=== PATIENT | male | born 1950 | race Caucasian/White ===

== ENCOUNTER 2016-09-03 17:31 | Inpatient (IN) ==
--- NOTE | 2016-09-03 13:04 | Emergency Department Note ---
General Adult HPI - General Chief complaint: Blood Pressure Problem Stated complaint: Increased blood pressure Time Seen by Provider: 09/03/16 12:56 Source: patient Mode of arrival: ambulatory Limitations: no limitations - History of Present Illness HPI Narrative: 66-year-old male had some right upper quadrant pain midepigastric pain yesterday. He was [employer] today. He did not drink any alcohol. He states his pain is for the most part subsided. There's been no nausea, no vomiting. No hematemesis, no melena or patient is afebrile and denies any symptoms of urgency, frequency or dysuria - Related Data Home Medications Medication Instructions Recorded Confirmed Aspirin [Lo-Dose Aspirin EC] 81 mg PO DAILY 09/03/16 09/03/16 Atorvastatin [Lipitor] 20 mg PO HS 09/03/16 09/03/16 Hydrochlorothiazide [Oretic] 25 mg PO DAILY 09/03/16 09/03/16 Levothyroxine 0.2 mg PO DAILY 09/03/16 09/03/16 Methocarbamol [Robaxin] 750 mg PO DAILYP PRN 09/03/16 09/03/16 Metoprolol Tartrate [Lopressor] 50 mg PO DAILY 09/03/16 09/03/16 Tamsulosin [Flomax] 0.4 mg PO DAILY 09/03/16 09/03/16 buPROPion [Wellbutrin Xl] 300 mg PO DAILY 09/03/16 09/03/16 Allergies Allergy/AdvReac Type Severity Reaction Status Date / Time Amoxicillin Allergy Intermediate Hives Verified 09/03/16 11:04 Review of Systems All systems ED: reviewed and negative except as stated. Constitutional: Denies: fever, chills Eyes: Denies: eye pain ENT ED: Denies: ear pain Cardiovascular: Denies: chest pain Respiratory: Denies: cough Gastrointestinal: Reports: abdominal pain. Denies: nausea, vomiting, diarrhea, constipation, hematemesis, melena Genitourinary: Denies: urgency, dysuria Musculoskeletal: Denies: back pain Integumentary: Denies: rash Neurological: Denies: headache Psychiatric: Denies: anxiety Endocrine: Denies: as per HPI Past Medical History - Past Medical History Medical history: Reports: other ([place]) Surgical history ED: Reports: non-contributory Family history: Reports: non-contributory - Social History smoking status: Never smoker Alcohol use: Reports: Rarely Drug use: Reports: none Physical Exam - General Limitations: no limitations General appearance: alert - Head Head exam: atraumatic - Eye Eye exam: Present: normal appearance - ENT ENT exam: normal exam, normal oropharynx - Neck Neck exam: Present: normal inspection, full ROM - Chest Chest inspection: Present: normal inspection - Respiratory Respiratory exam: Present: normal lung sounds bilaterally, respiratory distress - Cardiovascular Cardiovascular exam: Present: regular rate, normal rhythm - Abdominal Exam Abdominal exam: Present: soft, distention - exam: Present: normal inspection, testicular tenderness - Extremities Exam Extremities exam: Present: normal inspection, full ROM - Back Exam Back exam: Present: normal inspection, full ROM, CVA tenderness (R). Absent: tenderness Course Vital Signs Temperature 97.0 F L 09/03/16 11:01 Pulse Rate 78 09/03/16 11:01 Respiratory Rate 18 09/03/16 11:01 Blood Pressure 169/88 09/03/16 11:01 Pulse Oximetry (%) 93 09/03/16 11:01 Temperature 97.0 F L 09/03/16 15:20 Pulse Rate 80 09/03/16 15:31 Respiratory Rate 16 09/03/16 15:31 Blood Pressure 135/80 09/03/16 15:31 Pulse Oximetry (%) 98 09/03/16 15:31 Medical Decision Making - [facility] Narrative Medical decision making narrative: wbc is 12,600, liver function tests are neg. gb us reveals sludge, thicken gb wall Dr Acosta contacted and pt to be admitted observation, npo after midnight - Lab Data Result diagrams: 09/03/16 13:09 09/03/16 13:09 Lab Results 09/03/16 09/03/16 Range/Units 13:09 13:09 WBC 12.9 H (4.5-11.0) K/mcL RBC 5.30 (4.50-5.90) M/mcL Hgb 15.6 (13.5-16.5) g/dL Hct 45.4 (41.0-55.0) % MCV 85.7 (80.0-100.0) fL MCH 29.5 (26.0-34.0) pg MCHC 34.4 (31.0-36.0) g/dL RDW 13.7 (11.5-14.5) % Plt Count 154 (140-440) K/mcL MPV 10.8 H (7.4-10.4) fL Gran % 75.7 (38.0-78.0) % Lymph % (Auto) 11.0 L (15.5-49.0) % Parker % (Auto) 10.4 H (1.0-9.0) % Eos % (Auto) 2.8 (0.0-7.0) % Baso % (Auto) 0.1 (0.0-2.0) % Gran # 9.8 H (1.8-8.0) K/mcL Lymph # 1.4 L (1.5-4.8) K/mcL Parker # 1.3 H (0.1-0.9) K/mcL Eos # 0.4 (0.0-0.7) K/mcL Baso # 0 (0.0-0.3) K/mcL Sodium 137 (133-145) mmol/L Potassium 4.3 (3.3-5.1) mmol/L Chloride 98 (96-108) mmol/L Carbon Dioxide 29 (22-30) mmol/L Anion Gap 10.0 (8-16) BUN 17 (8-23) mg/dl Creatinine 1.0 (0.7-1.2) mg/dl GFR Calculation 78 Glucose 86 (70-105) mg/dL Calcium 10.1 (8.6-10.4) mg/dl Total Bilirubin 0.4 (0.0-1.0) mg/dL AST 24 (0-37) U/l ALT 26 (0-40) U/l Alkaline Phosphatase 99 (39-117) U/L Total Protein 7.1 (5.9-8.4) gm/dL Albumin 4.0 (3.2-5.2) gm/dL Globulin 3.1 (2.2-3.7) gm/dL Albumin/Globulin Ratio 1.3 (1.0-2.3) Lipase 24 (7-60) U/L Disposition Clinical Impression: Acute cholecystitis Disposition: Xfer As Outpt/Obs ([facility]) Condition: Good Referrals: Kimberlee Acosta ARNP [Primary Care Provider] -
[2016-09-03 14:24] LABS: Basophils # (Auto) 0 K/mcL (0.0-0.3); Basophils % (Auto) 0.1 % (0.0-2.0); Eosinophils # (Auto) 0.4 K/mcL (0.0-0.7); Eosinophils % (Auto) 2.8 % (0.0-7.0); Granulocytes % (Auto) 75.7 % (38.0-78.0); Lymphocytes # (Auto) 1.4 K/mcL (1.5-4.8); Mean Cell Volume 85.7 fL (80.0-100.0); Mean Corpuscular HGB Conc 34.4 g/dL (31.0-36.0); Mean Corpuscular Hemoglobin 29.5 pg (26.0-34.0); Monocytes # (Auto) 1.3 K/mcL (0.1-0.9); Monocytes % (Auto) 10.4 % (1.0-9.0); Platelet Count 154 K/mcL (140-440); Red Cell Distribution Width 13.7 % (11.5-14.5)
[2016-09-03 14:39] LABS: ALT/SGPT 26 U/l (0-40); Albumin/Globulin Ratio 1.3 (1.0-2.3); Alkaline Phosphatase 99 U/L (39-117); Blood Urea Nitrogen 17 mg/dl (8-23); Lipase 24 U/L (7-60)
--- NOTE | 2016-09-03 16:14 | Ultrasound Report ---
CLINICAL INFORMATION: Right upper quadrant pain COMPARISON: None. FINDINGS: Liver is diffusely hyperechoic compatible fatty change. No focal hepatic lesion. The gallbladder wall is moderately thickened - 6 mm. The gallbladder contains a moderate moderate amount of sludge, but no definite stone. Tenderness noted over the gallbladder. Common bile is normal measuring 6 mm. IMPRESSION: Acute cholecystitis - this may be acalculus: There is sludge, but no definite stones identified Interpreted and Authenticated by: Luke Sanchez 09/03/16
[2016-09-03] MEDS: 0.9 % SODIUM CHLORIDE 1,000 ML IV SCH (17:09)
[~2016-09-03 17:31] MED LIST: ONDANSETRON 4 MG/2 ML VIAL IV PRN
[2016-09-03] MEDS ORDERED: PROMETHAZINE 25 MG/ML VIAL IV PRN (18:43)
[2016-09-03] MEDS ORDERED: HYDROmorphone 2 MG/ML SYRINGE IV PRN (18:43)
[2016-09-03] MEDS ORDERED: LEVOFLOXACIN 750 MG/150 ML BAG IV SCH (18:45)
[2016-09-03] MEDS: 0.9 % SODIUM CHLORIDE 10 ML SYRINGE IV SCH (22:00)
[2016-09-04] MEDS: 0.9 % SODIUM CHLORIDE 1,000 ML IV SCH (05:15)
[2016-09-04] MEDS ORDERED: PANTOPRAZOLE 40 MG VIAL IV SCH (07:30)
[2016-09-04 07:32] LABS: Mean Cell Volume 88.7 fL (80.0-100.0); Mean Corpuscular HGB Conc 32.4 g/dL (31.0-36.0); Mean Corpuscular Hemoglobin 28.7 pg (26.0-34.0); Platelet Count 158 K/mcL (140-440); RBC 5.17 M/mcL (4.50-5.90); Red Cell Distribution Width 14.1 % (11.5-14.5)
[2016-09-04] MEDS: 0.9 % SODIUM CHLORIDE 10 ML SYRINGE IV SCH (07:53)
[2016-09-04 08:09] LABS: ALT/SGPT 23 U/l (0-40); Albumin 3.9 gm/dL (3.2-5.2); Albumin/Globulin Ratio 1.6 (1.0-2.3); Alkaline Phosphatase 104 U/L (39-117); Blood Urea Nitrogen 16 mg/dl (8-23)
[2016-09-04 08:30] LABS: Eosinophils % (Manual) 2 % (0-7); Lymphocytes % 13 % (15-49); Monocytes % (Manual) 10 % (1-9); Platelet Estimate NORMAL (NORMAL); RBC Morphology NORMAL (NORMAL); Segmented Neutrophils % 75 % (38-78)
--- NOTE | 2016-09-04 08:50 | XRay Report ---
CLINICAL INFORMATION: Preop COMPARISON: None. FINDINGS: Heart size, mediastinum and pulmonary vessels are normal. The lungs are clear. No effusions. Mild chronic wedging of the mid/ lower thoracic vertebral bodies are appreciated. IMPRESSION: No acute cardiopulmonary disease. Interpreted and Authenticated by: Luke Sanchez 09/04/16
[2016-09-04] MEDS ORDERED: METOPROLOL TARTRATE 50 MG TABLET PO SCH (09:00)
--- NOTE | 2016-09-04 09:47 | General Surg History&Physical ---
History of Present Illness Patient information: Note initiated : 09/04/16 at 9:45 am Service Date, if different from initiated Date: [] Patient: Martín Mcmanus 66 y/o M admitted on 09/03/16 for Increased Blood Pressure. Chief Complaint: [] Chief complaint: abdominal pain HPI: Mr. Mcmanus is a 66 year old male with a 2 day history of right upper quadrant and epigastric pain. The pain was very severe in onsetabout 9 PM on Saturday It did not radiate. He did not have nausea or vomiting. The pain continued throughout the night and he was seen in the emergencym about midday yesterday. He was noted to have leukocytosis with right upper quadrant tenderness. He had large volume of sludge in his gallbladder with a thickened gallbladder wall. He has not had prior problems wi indigestion. There is no family history of gallbladder disease. Patient is felt to have a acalculous cholecystitis and is admitted for treatment. Review of Systems - Cardiovascular no chest pain at rest, no dyspnea on exertion, no palpatations, no syncope - Respiratory snoring, other (obstructive sleep apnea) - Gastrointestinal abdominal pain - Genitourinary nocturia, urinary frequency - Musculoskeletal back pain, joint swelling - Integumentary no pruritus, no rash - Neurological no abnormal movements, no convulsions, no dizziness, no headache(s), no memory loss, no sensory deficit, no tremor(s), no vertigo - Psychiatric depression - Hematologic/Lymphatic no easy bleeding, no easy bruising, no lymphadenopathy - Allergic/Immunologic no tongue swelling, no throat swelling, no uticaria, no wheezing, no lip swelling Past History Past medical history: HYPOTHYROIDISM hYPERTENSION cHRONIC OBSTRUCTIVE SLEEP APNEA REQUIRING SLEEPING IN CHAIR FOR 2 YEARS Past surgical history: NO OPERATIVE PROCEDURES Past family history: FATHER AGE 90 WITH CORONARY ARTERY DISEASE AND EARLY DEMENTIA mOTHER AGE 87 WITHOUT MEDICAL ILLNESS bROTHER COMPLICATIONS OF HEPATITIS c Past social history: RETIRED lIVES LOCALLY tOBACCO NONE aLCOHOL OCCASIONAL BEER dRUGS DENIES USE Medications and Allergies Home Medications Medication Instructions Recorded Confirmed Type Aspirin [Lo-Dose Aspirin EC] 81 mg PO DAILY 09/03/16 09/03/16 History Atorvastatin [Lipitor] 20 mg PO HS 09/03/16 09/03/16 History Hydrochlorothiazide [Oretic] 25 mg PO DAILY 09/03/16 09/03/16 History Levothyroxine 0.2 mg PO DAILY 09/03/16 09/03/16 History Methocarbamol [Robaxin] 750 mg PO DAILYP PRN 09/03/16 09/03/16 History Metoprolol Tartrate [Lopressor] 50 mg PO DAILY 09/03/16 09/03/16 History Tamsulosin [Flomax] 0.4 mg PO DAILY 09/03/16 09/03/16 History buPROPion [Wellbutrin Xl] 300 mg PO DAILY 09/03/16 09/03/16 History Allergies Allergy/AdvReac Type Severity Reaction Status Date / Time Amoxicillin Allergy Intermediate Hives Verified 09/03/16 11:04 Exam Temp Pulse Resp BP Pulse Ox 98.2 F 88 18 134/85 96 09/04/16 07:31 09/04/16 07:31 09/04/16 07:31 09/04/16 07:31 09/04/16 07:31 - General physical appearance well developed, well nourished, no distress, other (ORBIDLY OBESE) - Eyes PERRL, normal ocular movement - ENT normal pinna, normal nares, normal mucosa, no hearing loss, no congestion - Head Head exam IM: Present: atraumatic, normocephalic - Neck no masses, no bruits, trachea midline, no lymphadectomy, no venous distension - Cardiovascular Cardiovascular exam IM: Present: normal rate and rhythm, RRR, +S1. Absent: JVD - Respiratory normal expansion, normal respiratory effort, clear to percussion, clear to auscultation - Abdomen Abdomen: Present: soft, tender (RIGHT UPPER QUADRANT AND EPIGASTRIC TENDERNESS WITH GUARDING), bowel sounds Hernia: Present: none - Integumentary Present: no rash, no growths, no abnormal pigmentation - Neurologic Present: normal coordination, normal sensation - Musculoskeletal Present: normal gait, normal posture - Psychiatric Present: oriented to time, oriented to person, oriented to place, speech is normal, memory intact Assessment and Plan (1) Acute cholecystitis PATIENT HAS BEEN COUNSELED FOR LAPAROSCOPIC CHOLECYSTECTOMY hE HAS HE HAS SOME ekg CHANGESWHICH WILL BE EVALUATED BY CARDIOLOGY PREOP Status: Acute (2) Hypertension Status: Acute (3) 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
[2016-09-04] MEDS ORDERED: ONDANSETRON 4 MG/2 ML VIAL IV ONE (11:40)
[2016-09-04] MEDS ORDERED: PROPOFOL 200 MG/20 ML VIAL IV ONE (11:40)
[2016-09-04] MEDS ORDERED: GLYCOPYRROLATE 0.2 MG/ML VIAL IV ONE (11:40)
[2016-09-04] MEDS ORDERED: NEOSTIGMINE 1 MG/ML VIAL IV ONE (11:40)
[2016-09-04] MEDS ORDERED: PHENYLEPHRINE 10 MG/ML VIAL IV ONE (11:40)
[2016-09-04] MEDS ORDERED: LIDOCAINE HCL/PF 100 MG/5 ML SYRINGE IV ONE (11:40)
[2016-09-04] MEDS ORDERED: SUCCINYLCHOLINE 20 MG/ML ML IV ONE (11:40)
[2016-09-04] MEDS ORDERED: MIDAZOLAM 5 MG/5 ML VIAL IV ONE (11:40)
[2016-09-04] MEDS ORDERED: ROCURONIUM 10 MG/ML ML IV ONE (11:40)
[2016-09-04] MEDS ORDERED: fentaNYL 100 MCG/2 ML VIAL IV ONE ×2 (11:40→14:25)
[2016-09-04] MEDS ORDERED: KETAMINE 100 MG/ML ML IV ONE (11:40)
--- NOTE | 2016-09-04 14:03 | Brief Operative Note ---
Date of procedure: 09/04/16 Pre-op diagnosis: acute cholecystitis Post-op diagnosis: other (acute cholecystitis with cholelithiasis) Procedure: open cholecystectomy Grafts/Implants: No (j p drain x1 ) Anesthesia: GETA Findings: acute severe inflammation of gallbladder with innumerable small stones and intrahepatic gallbladder Complications: none Surgeon: Hussain Acosta Estimated blood loss (cc): 50 Specimens Removed/Pathology: other (gallbladder) Condition: stable Disposition: PACU
[2016-09-04] MEDS ORDERED: METHOCARBAMOL 1,000 MG/10 ML VIAL IV PRN (14:11)
[2016-09-04] MEDS ORDERED: LABETALOL 5 MG/ML ML IV PRN (14:11)
[2016-09-04] MEDS ORDERED: MEPERIDINE 25 MG/ML SYRINGE IV PRN (14:11)
[2016-09-04] MEDS ORDERED: PROMETHAZINE 25 MG/ML VIAL IV PRN (14:11)
[2016-09-04] MEDS ORDERED: KETOROLAC 30 MG/ML VIAL IV ONE (14:11)
[2016-09-04] MEDS ORDERED: IPRATROPIUM/ALBUTEROL 3 ML AMPUL.NEB NEB PRN (14:11)
[2016-09-04] MEDS ORDERED: BENZOCAINE/MENTHOL 1 LOZENGE PO PRN (14:11)
[2016-09-04] MEDS: fentaNYL 100 MCG/2 ML VIAL IV PRN ×4 (14:14→14:46)
[2016-09-04] MEDS ORDERED: LACTATED RINGERS 1,000 ML IV SCH (14:15)
[2016-09-04] MEDS: ACETAMINOPHEN 1,000 MG/100 ML BOTTLE IV SCH ×2 (14:40→20:55)
--- NOTE | 2016-09-04 14:47 | XRay Report ---
CLINICAL INFORMATION: Instrument count - open cholecystectomy COMPARISON: None. FINDINGS: Supine AP and stable lateral views are submitted. There is a towel clamp seen only on on the lateral view which apparently is outside the patient. There are no instruments or sponges within the patient. The stool gas pattern grossly normal. A surgical drain seen in the right upper quadrant - as expected. IMPRESSION: Negative Interpreted and Authenticated by: Luke Sanchez 09/04/16
[2016-09-04] MEDS: HYDROmorphone 2 MG/ML SYRINGE IV PRN ×2 (14:52→15:15)
[2016-09-04] MEDS ORDERED: METHOCARBAMOL 750 MG TABLET PO PRN (15:46)
[2016-09-04] MEDS ORDERED: ACETAMINOPHEN 1,000 MG/100 ML BOTTLE IV PRN (15:46)
[2016-09-04] MEDS ORDERED: HYDROmorphone 2 MG/ML SYRINGE IV PRN (15:46)
[2016-09-05] MEDS: ACETAMINOPHEN 1,000 MG/100 ML BOTTLE IV SCH ×2 (03:04→08:09)
[2016-09-05] MEDS: PANTOPRAZOLE 40 MG VIAL IV SCH (06:48)
[2016-09-05] MEDS: LEVOTHYROXINE 100 MCG TABLET PO SCH (06:49)
[2016-09-05 07:58] LABS: Basophils # (Auto) 0 K/mcL (0.0-0.3); Basophils % (Auto) 0 % (0.0-2.0); Eosinophils # (Auto) 0.1 K/mcL (0.0-0.7); Eosinophils % (Auto) 0.9 % (0.0-7.0); Granulocytes % (Auto) 80.1 % (38.0-78.0); Lymphocytes # (Auto) 1.1 K/mcL (1.5-4.8); Lymphocytes % (Auto) 7.8 % (15.5-49.0); Mean Cell Volume 88.7 fL (80.0-100.0); Mean Corpuscular HGB Conc 32.8 g/dL (31.0-36.0); Mean Corpuscular Hemoglobin 29.1 pg (26.0-34.0); Monocytes # (Auto) 1.5 K/mcL (0.1-0.9); Monocytes % (Auto) 11.2 % (1.0-9.0); Platelet Count 158 K/mcL (140-440); RBC 5.13 M/mcL (4.50-5.90); Red Cell Distribution Width 14.5 % (11.5-14.5)
[2016-09-05] MEDS: METOPROLOL TARTRATE 50 MG TABLET PO SCH (08:10)
[2016-09-05] MEDS: buPROPion 150 MG TAB.XL.24H PO SCH (08:10)
[2016-09-05] MEDS: TAMSULOSIN 0.4 MG CAPSULE PO SCH (08:10)
[2016-09-05 09:03] LABS: Blood Urea Nitrogen 20 mg/dl (8-23)
[2016-09-05] MEDS: LEVOFLOXACIN 750 MG/150 ML BAG IV SCH (15:38)
[2016-09-05] MEDS: 0.9 % SODIUM CHLORIDE 1,000 ML IV SCH (15:44)
--- NOTE | 2016-09-05 18:09 | General Surgery Progress Note ---
Subjective Patient reports: feels better, pain is less, tolerating a regular diet, flatus, bowel movement, afebrile Narrative: Note initiated : 09/05/16 at 6:09 pm Service Date, if different from initiated Date: [] Patient: Martín Mcmanus 66 y/o M admitted on 09/04/16 for Increased Blood Pressure/Acute Chloecystitis. Chief Complaint: [patient is doing much better. He still has a moderate amount of pain. He is tolerating diet without difficulty. He denies nausea. He has been afebrile. Drainage and his ROCHELLE is still bloody as anticipated. Vital signs have been stable.] Objective Temp Pulse Resp BP Pulse Ox 97.6 F 80 16 114/70 97 09/05/16 16:00 09/05/16 16:00 09/05/16 16:00 09/05/16 16:00 09/05/16 16:00 - Additional Data Intake & Output - Last 24 hours: Intake & Output 09/03/16 09/04/16 09/05/16 09/06/16 05:59 05:59 05:59 05:59 Intake Total 400 / 2250 Output Total 625 / 725 725 / 725 Balance -225 / 1525 -725 / -725 Weight 322 lb - General physical appearance moderate distress, moderate pain - Eyes PERRL - ENT no congestion - Neck no venous distension - Respiratory clear to auscultation, other (poor inspiratory effort due to pain) - Cardiovascular Cardiovascular exam: Present: normal rate and rhythm, RRR, +S1, +S2. Absent: JVD - Abdomen tender, bowel sounds, distended (moisés distended; active bowel sounds; tenderness primarily around his subcostal incision) - Integumentary no rash - Neurologic normal coordination, normal sensation - Musculoskeletal normal gait, normal posture - Psychiatric oriented to time, oriented to person, oriented to place, speech is normal, memory intact - Labs 09/06/16 06:20 09/06/16 06:20 Diabetes panel 09/05/16 Range/Units 06:20 Sodium 135 (133-145) mmol/L Potassium 4.4 (3.3-5.1) mmol/L Chloride 97 (96-108) mmol/L Carbon Dioxide 24 (22-30) mmol/L BUN 20 (8-23) mg/dl Creatinine 1.2 (0.7-1.2) mg/dl Glucose 89 (70-105) mg/dL Calcium 8.3 L (8.6-10.4) mg/dl Calcium panel 09/05/16 Range/Units 06:20 Calcium 8.3 L (8.6-10.4) mg/dl Pituitary panel 09/05/16 Range/Units 06:20 Sodium 135 (133-145) mmol/L Potassium 4.4 (3.3-5.1) mmol/L Chloride 97 (96-108) mmol/L Carbon Dioxide 24 (22-30) mmol/L BUN 20 (8-23) mg/dl Creatinine 1.2 (0.7-1.2) mg/dl Glucose 89 (70-105) mg/dL Calcium 8.3 L (8.6-10.4) mg/dl Adrenal panel 09/05/16 Range/Units 06:20 Sodium 135 (133-145) mmol/L Potassium 4.4 (3.3-5.1) mmol/L Chloride 97 (96-108) mmol/L Carbon Dioxide 24 (22-30) mmol/L BUN 20 (8-23) mg/dl Creatinine 1.2 (0.7-1.2) mg/dl Glucose 89 (70-105) mg/dL Calcium 8.3 L (8.6-10.4) mg/dl Medical - PN: A/P - Time Spent With Patient Total time spent is greater than 50% in coordination of care (as documented) at patient's floor/unit and/or counseling patient: (1) Acute cholecystitis Status: Acute Assessment and plan: patient will continue on IV antibiotics and present therapy. The bloody drainage should decrease. Since his hemoglobin is stable he will probably be ready to be discharged in the morning. 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
[2016-09-06 07:14] LABS: Basophils # (Auto) 0 K/mcL (0.0-0.3); Basophils % (Auto) 0 % (0.0-2.0); Eosinophils # (Auto) 0.3 K/mcL (0.0-0.7); Eosinophils % (Auto) 2.6 % (0.0-7.0); Granulocytes % (Auto) 76.5 % (38.0-78.0); Lymphocytes # (Auto) 1.2 K/mcL (1.5-4.8); Lymphocytes % (Auto) 9.4 % (15.5-49.0); Mean Cell Volume 89.6 fL (80.0-100.0); Mean Corpuscular Hemoglobin 28.7 pg (26.0-34.0); Monocytes # (Auto) 1.5 K/mcL (0.1-0.9); Monocytes % (Auto) 11.5 % (1.0-9.0); Platelet Count 154 K/mcL (140-440); RBC 4.74 M/mcL (4.50-5.90); Red Cell Distribution Width 14.2 % (11.5-14.5)
[2016-09-06] MEDS: LEVOTHYROXINE 100 MCG TABLET PO SCH (07:42)
[2016-09-06 07:43] LABS: Blood Urea Nitrogen 13 mg/dl (8-23)
[2016-09-06] MEDS: PANTOPRAZOLE 40 MG VIAL IV SCH (08:05)
[2016-09-06] MEDS: TAMSULOSIN 0.4 MG CAPSULE PO SCH (09:11)
[2016-09-06] MEDS: METOPROLOL TARTRATE 50 MG TABLET PO SCH (09:11)
[2016-09-06] MEDS: 0.9 % SODIUM CHLORIDE 1,000 ML IV SCH (09:12)
[2016-09-06] MEDS: buPROPion 150 MG TAB.XL.24H PO SCH (09:12)
[2016-09-06] MEDS: LEVOFLOXACIN 750 MG/150 ML BAG IV SCH (09:13)
--- NOTE | 2016-09-06 12:59 | Discharge Summary ---
Providers - Providers Patient information: Note initiated : 09/06/16 at 12:57 pm Service Date, if different from initiated Date: [] Patient: Martín Mcmanus 66 y/o M admitted on 09/04/16 for Increased Blood Pressure/Acute Chloecystitis. Chief Complaint: [] Date of admission: 09/03/16 Discharge date: 09/06/16 Attending physician: Hussain Acosta Hospitalization Hospital course: 66-year-old male who presented with a 2 day history ofsevere abdominal pain with nausea and vomiting. He was seen in the emergency room and was found to have a gallbladder filled with sludge and thickenedallbladder wall. He had associated leukocytosis and a very tender abdomen. He had urgent cholecystectomy which revealed an intrahepatic gallbladderwhich was severely inflamed and non-compressible. He was converted to open and have an open cholecystectomy on a gallbladder that was severely inflamed .. He still has significant drainage but is otherwise doing well. He hashad good control of his pain and he is tolerating his diet. He is ready for discharge. Discharge diagnosis: acute cholecystitis with cholelithiasis Reason for admission: abdominal pain with nausea and vomiting Procedures: open cholecystectomy Complications: none Exam Temp Pulse Resp BP Pulse Ox 97.5 F L 82 22 123/79 94 09/06/16 11:55 09/06/16 11:55 09/06/16 11:55 09/06/16 11:55 09/06/16 11:55 - General physical appearance well developed, well nourished, moderate pain, obese - Cardiovascular Cardiovascular exam IM: Present: normal rate and rhythm, RRR, +S1, +S2. Absent : JVD - Respiratory normal expansion, clear to auscultation - Abdomen Abdomen: Present: soft, tender, bowel sounds, distended (distended abdomen with active bowel sounds; incision looks good; ROCHELLE drainage is bloody) - Neurologic Present: normal coordination, normal sensation - Musculoskeletal Present: normal gait, normal posture - Psychiatric Present: oriented to time, oriented to person, oriented to place, speech is normal, memory intact Discharge Plan - Patient/Caregiver Discharge Instructions Activity: increase activity as tolerated Diet: Regular Diet Additional Instructions: keep the drain in place until he returns to the office follow-up in the office in 2 weeks Prescriptions: Levofloxacin [Levaquin] 750 mg PO DAILY #7 tablet oxyCODONE/APAP [Percocet 10-325Mg] 1 tab PO Q4HP PRN #60 tablet PRN Reason: Pain - Follow up Plan Follow up with: Hussain Acosta MD [Physician] - 09/20/16 9:00 am Disposition: Home, Self-Care Prognosis: Good Rehab Potential: Good I certify that the patient requires SNF services.: No Overall status at discharge: patient is not back to baseline Pending Studies Resuscitation Status Full Code Diet Full Liquid Diet Start SatSep 04 Dinner Bupropion HCl (Wellbutrin Xl) 300 mg PO DAILY [facility] Last Admin: 09/06/16 09:12 Dose: 300 mg Admin: 09/05/16 08:10 Dose: 300 mg Hydromorphone HCl (Dilaudid) 1 mg IV Q4HP PRN PRN Reason: Pain Last Admin: 09/05/16 11:34 Dose: 1 mg Levofloxacin (Levaquin) 750 mg in 150 mls @ 100 mls/hr IV DAILY [facility] Last Infusion: 09/06/16 10:50 Dose: 0 mls/hr Admin: 09/06/16 09:13 Dose: 100 mls/hr Infusion: 09/05/16 17:15 Dose: 0 mls/hr Admin: 09/05/16 15:38 Dose: 100 mls/hr Sodium Chloride (Sodium Chloride 0.9%) 1,000 mls @ 100 mls/hr IV .Q10H [facility] Last Infusion: 09/06/16 12:42 Dose: 100 mls/hr Admin: 09/06/16 09:12 Dose: 100 mls/hr Infusion: 09/06/16 04:56 Dose: 100 mls/hr Infusion: 09/05/16 21:42 Dose: 100 mls/hr Infusion: 09/05/16 18:30 Dose: 0 mls/hr Admin: 09/05/16 15:44 Dose: 100 mls/hr Levothyroxine Sodium (Synthroid) 200 mcg PO ACB [facility] Last Admin: 09/06/16 07:42 Dose: 200 mcg Admin: 09/05/16 06:49 Dose: 200 mcg Metoprolol Tartrate (Lopressor) 50 mg PO DAILY [facility] Last Admin: 09/06/16 09:11 Dose: 50 mg Admin: 09/05/16 08:10 Dose: 50 mg Pantoprazole Sodium (Protonix) 40 mg IV QAMAC [facility] Last Admin: 09/06/16 08:05 Dose: 40 mg Admin: 09/05/16 06:48 Dose: 40 mg Tamsulosin HCl (Flomax) 0.4 mg PO DAILY [facility] Last Admin: 09/06/16 09:11 Dose: 0.4 mg Admin: 09/05/16 08:10 Dose: 0.4 mg Shift Summary 09/06/16 04:53 Shift Summary by Shelly Mcfarland SLept off & on tonight. O2 @ 2-3L keeping sats above 90%. Has sat in the chair twice tonight; gets out of bed w/minimal assist, and back into bed w/SBA. Ambulated to BR w/SBA to void. Urine is tea colored. ROCHELLE putting out serosanguinous drainage. Pt has not had any PRN meds for me tonight. Initialized on 09/06/16 04:53 - END OF NOTE
--- NOTE | 2016-09-06 16:44 | Surgical Pathology Report ---
HISTOLOGY SPECIMEN MICROSCOPIC DIAGNOSIS GALLBLADDER, CHOLECYSTECTOMY: -- ACUTE AND CHRONIC CHOLECYSTITIS WITH FOCAL MUCOSAL NECROSIS. -- CHOLELITHIASIS. (SE:sln) PROCEDURAL IMPRESSION Acute cholecystitis. GROSS DESCRIPTION Received in formalin labeled with the patient information is a soto-brown gallbladder measuring 11.6 x 4.0 x 0.9 cm. On the hepatic bed there is a 5.0 cm slit or opening. There are multiple metal clips and sutures identified; none on the duct. The duct end is open with 1.0 cm slit. At the opposite end there are additional bry and sutures covering an area 2.5 cm. There are a few black stones identified ranging in size from 0.1 to 0.3 cm. The mucosa is pink-soto and rough surfaced. The wall is up to 0.3 cm thick. [employer] sections submitted in one cassette. (SCB:jude) Electronically Signed by: Tayla Atkins D.O.
--- NOTE | 2016-09-10 13:29 | Operative Note ---
DATE OF OPERATION: 09/04/2016 PREOPERATIVE DIAGNOSIS: Acute cholecystitis. POSTOPERATIVE DIAGNOSIS: Acute cholecystitis with cholelithiasis. PROCEDURE: Open cholecystectomy. SURGEON: Hussain Acosta MD. FINDINGS: Acute severe inflammation of gallbladder with innumerable small stones and intrahepatic gallbladder. DESCRIPTION OF PROCEDURE: Under general anesthesia, the patient's abdomen was prepped and draped in the sterile field. A timeout procedure was carried out as per protocol. A supraumbilical incision was made and Veress needle was inserted. The patient was extremely large, and the needle did not reach the peritoneal cavity until it was up to its hub. Abdomen was insufflated with 3 liters of CO2. A 12 mm port was placed, and it required the full length of the port. The retaining balloon was insufflated to prevent the port from being dislodged. The scope was introduced. With the scope introduced there was very minimal space available even after 4 liters of insufflation was carried out. Under videoscopic guidance, a 12 mm port and two 5 mm ports were placed. Maximum insufflation was carried out but with more insufflation the ventilation was compromised. I did not have enough space to do the procedure at that time, so it was elected to do the procedure open. The ports were removed. Setup was revised. The abdomen was then approached with connection of the two medial port sites with a 15 blade scalpel. Electrocautery was then used to divide the subcutaneous tissue and the fascia muscle. The gallbladder was grasped. It was primarily intrahepatic. It was decompressed with a Weck needle. Because of all the small stones it was very difficult to adequately decompress it. [place] retractor was placed. The dome of the gallbladder was scored and using electrocautery blunt dissection and finger dissection I was able to start at the dome and work toward the infundibulum. Vessels were isolated, triply clipped and divided. The dissection was continued down to the end of the infundibulum at its junction with the cystic duct. At this point the cystic duct was clamped with a right angle clamp and the gallbladder was excised. The cystic duct was tied with two ties of 2-0 silk. It was also clipped with three clips. Copious irrigation was carried out. ROCHELLE drain was placed in the subhepatic space and brought out through the most lateral incision. Sponge, needle, instrument and blade counts were verified as correct. Posterior and anterior rectus fascia was closed with 0 Prolene. Subcutaneous tissue was irrigated and closed with 2-0 Monocryl. The skin was closed with bry. Dressing was placed. Drain was secured with 2-0 nylon. The patient tolerated the procedure well. He was awakened and transferred to the postanesthetic care unit in stable, satisfactory condition. LCS:erlin Job ID: [id number] Doc ID: [id number] Hussain Acosta M.D.
== END 2016-09-06 14:00 | disposition home or self-care (01) | DRG 415 ==
LOC: MEDSUROUT 17:31 → MEDSUR 17:31
PROVIDERS: ADMIT Family Medicine Adult Medicine; ATTEND Family Medicine Adult Medicine